=== PATIENT | male | born 1940 | race Caucasian/White ===

== ENCOUNTER → 2017-11-28 | Outpatient (CLI) | payer OTHER ==
--- NOTE | 2017-11-28 12:12 | GOP ---
[f rep st] OPERATIVE REPORT DATE OF OPERATION: 11/28/2017 SURGEON: Trav Szymanski MD PREOPERATIVE DIAGNOSIS: Elevated prostate specific antigen. POSTOPERATIVE DIAGNOSIS: Elevated prostate specific antigen. PROCEDURE PERFORMED: Transrectal ultrasound-guided biopsies of the prostate. FINDINGS: INDICATIONS: The patient is a 77-year-old male who was found on CT scan of the pelvis looking at her kike, to have multiple sclerotic bone lesions worrisome for metastatic prostate cancer. A PSA was ana wn and was found to be over 500 ng/mL. Prostate was firm to hard and consistent with prostate cancer . After discussing options, he elected to undergo biopsies for diagnosis. DESCRIPTION OF PROCEDURE: With the patient in the left lateral decubitus position, the transrectal u ltrasound probe was inserted into the prostate. Images were obtained and volume was measured at 58 c c. Then, 1% lidocaine was used to anesthetize the periprosthetic tissue. A total of 6 selective 5 b iopsies were obtained at the right and left base, mid, apical regions. The patient tolerated the pro cedure well. There were no complications. /[id number]/MODL
== END ==
LOC: BMCIMAGING 07:06
PROVIDERS: ATTEND Urology
PROC: 0VB03ZX Excision of Prostate, Percutaneous Approach, Diagnostic (ICD-10-PCS; principal; 2017-11-28)
DX: R97.20 Elevated prostate specific antigen [PSA] (principal)

== ENCOUNTER → 2017-12-12 | Outpatient (CLI) | payer OTHER | LOC: FIMAGING 10:33 | PROVIDERS: ATTEND Internal Medicine Hematology & Oncology | DX: C61 Malignant neoplasm of prostate (principal); C79.51 Secondary malignant neoplasm of bone | CPT/HCPCS: 78306; A9503 ==

== ENCOUNTER → 2018-10-29 | Outpatient (CLI) | payer OTHER | LOC: FIMAGING 10:56 | PROVIDERS: ATTEND Internal Medicine Hematology & Oncology | DX: C61 Malignant neoplasm of prostate (principal); C79.51 Secondary malignant neoplasm of bone | CPT/HCPCS: 78306; A9503 ==

== ENCOUNTER 2019-03-16 01:11 | Observation (INO) | payer OTHER | END 2019-03-16 15:30 | disposition home or self-care (01) | LOC: F2W 03:14 ==